=== PATIENT | female | born 1975 | race Caucasian/White ===

== ENCOUNTER → 2021-05-08 | Emergency (ER) | payer OTHER ==
[~2021-05-08] VITALS: Ht 147.3 cm; Wt 49.9 kg
== END | disposition home or self-care (01) ==
LOC: ER 18:16
DX: R42 Dizziness and giddiness (principal); F41.8 Other specified anxiety disorders

== ENCOUNTER 2022-03-08 23:26 | Emergency (ER) | payer OTHER ==
[~2022-03-08] VITALS: Ht 142.2 cm; Wt 53.5 kg
[2022-03-09] MEDS ORDERED: KETO10TA2 PO (03:47)
== END 2022-03-09 03:55 ==
LOC: ER 23:26
DX: R07.89 Other chest pain (principal)

== ENCOUNTER 2023-10-12 07:35 | Emergency (ER) | payer OTHER ==
[~2023-10-12] VITALS: Ht 142.2 cm; Wt 54.4 kg
[~2023-10-12 07:35] MED LIST: KETO10TA2 PO
[2023-10-12] MEDS ORDERED: MECLIZINE HCL 25 MG TABLET PO ONE (08:45)
[2023-10-12] MEDS ORDERED: 0.9 % SODIUM CHLORIDE 1,000 ML IV SCH (08:45)
[2023-10-12 09:14] LABS: URINE APPEARANCE Clear; URINE BILIRRUBIN Negative (NEGATIVE); URINE BLOOD Negative; URINE COLOR Yellow; URINE GLUCOSE Negative (NEGATIVE); URINE LEUKOCYTE Negative; URINE NITRATE Negative; URINE PROTEIN Negative (NEGATIVE); URINE UROBILINOGEN 0.2 E.U./dl
[2023-10-12 09:15] LABS: HEMATOCRIT 35.9 % (36.0-45.00); HEMOGLOBIN 11.4 g/dL (12.0-15.00); MEAN CORPUSCULAR HEMOGLOBIN 21.6 pg (27.00-32.0); MEAN CORPUSCULAR HGB CONC 31.8 g/dl (32.0-36.0); PLATELET COUNT 353 K/uL (150-450); RED CELL DISTRIBUTION WIDTH 15.7 % (11.5-14.5)
[2023-10-12 09:15] LABS: URINE BACTERIA 826.5 uL (0.0-1933); URINE EPITHELIAL CELLS 57.1 uL (0.0-38.8); URINE RBC 14.8 uL (0.0-20.8); URINE WBC 9.7 uL (0.0-23.2)
[2023-10-12 09:16] LABS: MEAN CELL VOLUME 67.8 fL (80.00-100.00)
[2023-10-12 09:25] LABS: CALCIUM 9.4 mg/dL (8.5-10.1); CREATININE SERUM 0.76 mg/dL (0.55-1.02); GFR 82.3; POTASSIUM 4.14 mEq/L (3.5-5.1)
[2023-10-12] MEDS ORDERED: FAMOTIDINE/PF 20 MG/2 ML VIAL IV ONE (10:00)
== END 2023-10-12 10:38 | disposition home or self-care (01) ==
LOC: ER 07:35
PROVIDERS: Emergency Medicine
DX: R42 Dizziness and giddiness (principal)

== ENCOUNTER 2024-06-27 15:53 | Emergency (ER) | payer OTHER ==
[~2024-06-27] VITALS: Ht 142.2 cm; Wt 52.2 kg
[2024-06-27] MEDS ORDERED: BUTALB/ACETAMINOPHEN/CAFFEINE 1 TAB TABLET PO ONE (16:45)
[2024-06-27] MEDS ORDERED: KETOROLAC TROMETHAMINE 60 MG VIAL IM ONE (16:45)
[2024-06-27] MEDS ORDERED: DEXAMETHASONE SODIUM PHOSPHATE 4 MG/ML VIAL IM ONE (16:45)
[2024-06-27 17:16] LABS: HEMOGLOBIN 11.3 g/dL (12.0-15.00); MEAN CELL VOLUME 69.2 fL (80.00-100.00); MEAN CORPUSCULAR HEMOGLOBIN 21.7 pg (27.00-32.0); MEAN CORPUSCULAR HGB CONC 31.3 g/dl (32.0-36.0); PLATELET COUNT 345 K/uL (150-450)
[2024-06-27 17:52] LABS: ALKALINE PHOSPHATASE 100 U/L (50-136); ALT/SGPT 19 U/L (12-78); ANION GAP 6 (10.0-20.0); AST/SGOT < 3 U/L (15-37); BLOOD UREA NITROGEN 12 mg/dL (7-18); BUN CREA RATIO 16 (7.0-25.0); CALCIUM 9.4 mg/dL (8.5-10.1); CARBON DIOXIDE 30 mEq/L (21-32); CHLORIDE 107 mmol/L (98-107); CREATININE SERUM 0.73 mg/dL (0.55-1.02); GFR 85.83; GLOBULINA 4.1 G/DL (2.4-3.5); GLUCOSE FASTING 96 mg/dL (65-100); OSMOLALITY SERUM 277 MOSM/KG (275-295); POTASSIUM 4.03 mEq/L (3.5-5.1); SODIUM 139 mmol/L (136-145); TOTAL PROTEIN 8.1 gm/dL (6.4-8.2)
[2024-06-27] MEDS ORDERED: BUTALB-ACETAMI1 EAC2 PO (17:57)
[2024-06-27] MEDS ORDERED: DICLOFENAC SODI75 MG PO (17:57)
== END 2024-06-27 18:04 | disposition home or self-care (01) ==
LOC: ER 15:55
PROVIDERS: General Practice
DX: R51.9 Headache, unspecified (principal)

== ENCOUNTER 2024-07-01 14:09 | Emergency (ER) | payer OTHER ==
[~2024-07-01] VITALS: Ht 142.2 cm; Wt 56.7 kg
[~2024-07-01 14:09] MED LIST changes: +BUTALB-ACETAMI1 EAC2 PO; +DICLOFENAC SODI75 MG PO
[2024-07-01 15:29] VITALS: BP 104/73; O2SAT 99
[2024-07-01] MEDS ORDERED: FAMOTIDINE/PF 20 MG/2 ML VIAL IV ONE (19:15)
[2024-07-01] MEDS ORDERED: ONDANSETRON HCL 2 MG/ML VIAL IV ONE (19:15)
[2024-07-01] MEDS ORDERED: ACETAMINOPHEN 500 MG GEL..CAP PO ONE (19:15)
[2024-07-01 19:25] LABS: HEMATOCRIT 38.7 % (36.0-45.00); HEMOGLOBIN 12.2 g/dL (12.0-15.00); MEAN CORPUSCULAR HEMOGLOBIN 21.5 pg (27.00-32.0); MEAN CORPUSCULAR HGB CONC 31.5 g/dl (32.0-36.0); PLATELET COUNT 367 K/uL (150-450); RED BLOOD COUNT 5.65 M/uL (4.00-6.00)
[2024-07-01 19:29] LABS: MEAN CELL VOLUME 68.5 fL (80.00-100.00)
[2024-07-01 19:55] LABS: URINE APPEARANCE Cloudy; URINE BILIRRUBIN Negative (NEGATIVE); URINE BLOOD Small; URINE COLOR Dark Yellow; URINE GLUCOSE Negative (NEGATIVE); URINE KETONE Trace (NEGATIVE); URINE LEUKOCYTE Negative; URINE NITRATE Negative; URINE PROTEIN Trace (NEGATIVE)
[2024-07-01 19:59] LABS: URINE CAST 1.52 uL (0.0-1.40); URINE RBC 32.2 uL (0.0-20.8); URINE WBC 20.7 uL (0.0-23.2)
[2024-07-01 20:04] LABS: ALBUMIN 4.2 gm/dL (3.4-5.0); BILIRUBIN TOTAL 0.36 mg/dL (0.3-1.2); CALCIUM 9.4 mg/dL (8.5-10.1); CREATININE SERUM 0.77 mg/dL (0.55-1.02); GFR 80.7; GLOBULINA 3.9 G/DL (2.4-3.5); POTASSIUM 3.88 mEq/L (3.5-5.1); TOTAL PROTEIN 8.1 gm/dL (6.4-8.2)
[2024-07-01 20:18] LABS: URINE BACTERIA > 9821.5 uL (0.0-1933); URINE EPITHELIAL CELLS > 201.7 uL (0.0-38.8)
[2024-07-01] MEDS ORDERED: CEFTRIAXONE SODIUM 1,000 MG VIAL IM ONE (20:45)
[2024-07-01] MEDS ORDERED: MACROBID 100 M100 MG PO (21:28)
[2024-07-01] MEDS ORDERED: ONDANSETRON HCL4 MG PO (21:28)
[2024-07-01] MEDS ORDERED: CARAFATE1 GM PO (21:28)
[2024-07-01] MEDS ORDERED: PEPCID AC20 MG PO (21:28)
== END 2024-07-01 21:52 | disposition home or self-care (01) ==
LOC: ER 14:11
PROVIDERS: Nurse Practitioner Family
DX: N39.0 Urinary tract infection, site not specified (principal); J45.909 Unspecified asthma, uncomplicated; Z20.822 Contact with and (suspected) exposure to COVID-19